=== PATIENT | male | born 1965 | race African-American/Black ===

== ENCOUNTER 2019-08-08 18:17 | Observation (INO) ==
[2019-08-08 19:59] LABS: Basophils % 0.3 % (0.0-0.8); Eosinophils # 0.3 10*3/uL (0.0-0.87); Eosinophils % 3.2 % (0.00-10.9); Hematocrit 51.4 VOL% (42.0-52.0); Hemoglobin 16.5 GM/DL (14.0-18.0); Immature Granulocytes % 0.6 %; Immature Granulocytes Absolute 0.06 #; Lymphocytes % 31.5 % (21.2-54.2); Mean Corpuscular HGB Conc 32.1 GM/DL (32-36); Mean Platelet Volume 10.8 FL (9.6-12.0); Monocytes % 7.5 % (1.7-12.7); Neutrophils % 56.9 % (38.7-73.9); Platelet Count 265 T/CUMM (130-400); Red Blood Count 5.84 MC/CUMM (3.8-5.5); Red Cell Distribution Width 13.6 % (9.3-17.3); White Blood Count 9.6 T/CUMM (4-12)
[2019-08-08 20:23] LABS: Albumin 3.7 G/DL (3.4-5.0); Bilirubin,Total 0.4 MG/DL (0.2-1.0); Calcium 9.2 MG/DL (8.5-10.1); Total Protein 8.8 G/DL (6.4-8.3)
[2019-08-08] MEDS ORDERED: POTASSIUM CHLORIDE 20 MEQ/15 ML UDCUP PO ONE (20:28)
[2019-08-08] MEDS ORDERED: ONDANSETRON 4 MG/2 ML VIAL IV PRN (21:07)
[2019-08-08] MEDS ORDERED: GLUCAGON 1 MG VIAL IM PRN (21:07)
[2019-08-08] MEDS ORDERED: ACETAMINOPHEN 325 MG TABLET PO PRN (21:07)
[2019-08-08] MEDS ORDERED: POTASSIUM CHLORIDE 20 MEQ TABLET PO PRN ×2 (21:07→23:00)
[2019-08-08] MEDS ORDERED: DEXTROSE 10% 250 ML BAG IV PRN (22:20)
[2019-08-09 00:23] LABS: Risk Ratio 4.83; Thyroid Stimulating Hormone 0.379 uIU/ml (0.358-3.74); VLDL CHOLESTEROL 28.2 MG/DL
[2019-08-09 02:37] LABS: Troponin I 0.082 NG/ML (0.00-0.045)
[2019-08-09 07:51] LABS: Albumin 3.3 G/DL (3.4-5.0); Bilirubin,Total 0.5 MG/DL (0.2-1.0); Calcium 8.9 MG/DL (8.5-10.1); Osmolality,Calculated 272.2 MOS/KG (273-304); Total Protein 7.9 G/DL (6.4-8.3)
[2019-08-09 07:56] LABS: Troponin I 0.082 NG/ML (0.00-0.045)
[2019-08-09] MEDS ORDERED: ENOXAPARIN 120 MG/0.8 ML SYRINGE SUBCUT SCH (08:00)
[2019-08-09] MEDS ORDERED: ASPIRIN CHEW 81 MG TABLET PO SCH (09:00)
[2019-08-09] MEDS ORDERED: ASPIRIN EC 325 MG TABLET PO SCH (09:00)
[2019-08-09] MEDS ORDERED: hydrALAZINE 25 MG TABLET PO SCH (09:00)
[2019-08-09] MEDS ORDERED: LISINOPRIL/HCTZ 20-25 MG TABLET PO SCH (09:00)
[2019-08-09] MEDS ORDERED: MECLIZINE 25 MG TABLET PO SCH (09:00)
[2019-08-09] MEDS ORDERED: LORATADINE 10 MG TABLET PO SCH (09:00)
[2019-08-09 11:26] VITALS: BP 131/77
[2019-08-09] MEDS ORDERED: ROSUVASTATIN 20 MG TABLET PO SCH (21:00)
== END 2019-08-09 15:03 ==
LOC: N.ED 18:17 → N.EDINP 18:17 → N.3W 22:40
PROVIDERS: ADMIT Internal Medicine Geriatric Medicine; ATTEND Internal Medicine Geriatric Medicine